=== PATIENT | male | born 1980 | race Caucasian/White ===

== ENCOUNTER 2023-11-03 06:32 | Emergency (ER) | payer OTHER, SELFPAY ==
[2023-11-03 06:37] VITALS: BP 121/77; BMI 25.9
[2023-11-03 07:00] VITALS: BP 133/87
[2023-11-03 07:03] LABS: % Basophils 0.5 % (0-2); % Eosinophils 2.2 % (0-6); % Immature Granulocytes 0.4 % (0-0.5); % Lymphocytes 10.1 % (20.5-51.1); % Monocytes 5.6 % (1.7-9.3); % Neutrophils 81.2 % (42.2-75.2); Absolute Basophils 0.1 10^3/uL (0-0.2); Absolute Eosinophils 0.3 10^3/uL (0-0.7); Absolute Immature Granulocytes 0.1 10^3/uL (0-0.05); Absolute Lymphocytes 1.5 10^3/uL (1.2-3.4); Absolute Monocytes 0.8 10^3/uL (0.1-0.6); Absolute Neutrophils 11.9 10^3/uL (1.4-6.5); Hematocrit 42.6 % (39.0-52.0); Hemoglobin 14.4 g/dL (13.0-18.0); Mean Corp Hgb Conc. 33.8 g/dL (33.0-37.0); Mean Corpuscular Hgb 30.4 pg (27.0-31.0); Mean Corpuscular Volume 90.1 fL (80.0-94.0); Mean Platelet Volume 10.1 fL (7.4-10.4); Nucleated Red Blood Cells % 0 % (-); Platelet Count 393 10^3/uL (130-400); Red Blood Cell Count 4.73 10^6/uL (4.70-6.10); Red Cell Dist. Width 12.8 % (11.5-14.5); White Blood Cell Count 14.7 10^3/uL (4.8-10.8)
[2023-11-03 07:23] LABS: ALT (SGPT) 67 U/L (0-50); AST (SGOT) 71 U/L (17-59); Albumin 4.6 g/dl (3.5-5.0); Alkaline Phosphatase 93 U/L (38-126); Blood Urea Nitrogen 24 mg/dl (9-20); Calcium 9.7 mg/dl (8.4-10.2); Carbon Dioxide 24 mmol/L (22-30); Chloride 105 mmol/L (98-107); Estimated Creatinine Clearance 114 ml/min; Glucose 125 mg/dl (70-99); Potassium 3.8 mmol/L (3.5-5.1); Sodium 138 mmol/L (135-145); Total Bilirubin 0.3 mg/dl (0.2-1.3); Total Protein 7.4 g/dl (6.3-8.2); eGFR > 60.00
--- NOTE | 2023-11-03 07:31 | ED.GENMED ---
History of Present Illness
General
Chief Complaint: Chest Pain
Source: patient
Exam Limitations: none
Time Seen by Provider: 11/03/23 06:59
Nursing documentation reviewed up to this point in time: agreed with
Travel History
Have you had any contact with someone who has COVID-19?: No
Do you have any symptoms of coronavirus? Fever > 100 degrees, chills, cough, shortness of breath, sore throat, loss of taste or smell, muscle aches, or headache?: No
Symptoms:: nausea
History of Present Illness
History of Present Illness:
43-year-old male past medical history of substance abuse currently on methadone presenting to the emergency department today with concerns of left-sided chest pressure with radiation to the upper associate with nausea vomiting diaphoresis occurred
for under an hour prior to arrival EMS was called at his methadone he was given aspirin and nitro now chest pain is resolved. Denies any recent trauma surgery immobilization, clotting history. Patient was never an IV drug user. Denies similar
symptoms in the past no family history of early heart disease.
Review of Systems
Review of Systems
Allergies reviewed?: Yes
All Other Systems: ROS reviewed and negative except as documented in HPI and ROS
Phy Exam
Physical Exam
Physical Exam:
GENERAL: Alert , in no apparent distress
EYE: pupils equal and reactive
NECK: Supple, no significant adenopathy.
ENT: o/p clr, mmm.
CARDIAC: Regular rate and rhythm .
LUNGS: Clear breath sounds bilaterally, no acute respiratory distress, no wheezes/rales/rhonchi
ABDOMEN: Soft, without focal tenderness, no r/g, no cvat
NEUROLOGICAL: Alert and oriented, no focal neuro deficits
SKIN: Warm and dry, skin intact.
MUSCULOSKELETAL: No edema, well perfused.
PSYCH: Normal and appropriate interaction.
Scores
Heart Score for Chest Pain Patients
STEMI patient?: No
History: Slightly or Non-Suspicious
ECG: Normal
Age: </= 45 years
Risk Factors: 1 or 2 Risk Factors
Troponin: </= Normal Limit
Heart Score for Chest Pain Patients: 1
Heart Score Risk: 2.5% MACE over next 6 weeks
Course
Orders/Labs/Results
Orders:
Orders
11/03/23 06:36
Electrocardiogram (*1) Urgent
Reason for Study: Other
Other Reason for Exam: Respiratory Distress
Cardiac Monitoring- Treatment ONCE
EKG- Treatment ONCE
IV Insert/Care/Rem.- Treatment PRN
CR Chest - 2 Views Urgent
Comment:
Reason For Exam: respiratory distress
11/03/23 06:55
Complete Blood Count/With Diff Urgent
Comprehensive Metabolic Panel Urgent
Troponin I Urgent
11/03/23 09:35
EKG [Electrocardiogram (*1)] Urgent
Reason for Study: Chest Pain
EKG- Treatment ONCE
11/03/23 10:31
Troponin I Urgent
Abnormal Lab Results
11/03/23
06:55
WBC 14.7 H 10^3/uL
(4.8-10.8)
Abs Immat Gran (auto) 0.1 H 10^3/uL
(0-0.05)
Absolute Neuts (auto) 11.9 H 10^3/uL
(1.4-6.5)
Absolute Monos (auto) 0.8 H 10^3/uL
(0.1-0.6)
Neutrophils % 81.2 H %
(42.2-75.2)
Lymphocytes % 10.1 L %
(20.5-51.1)
BUN 24 H mg/dl
(9-20)
Glucose 125 H mg/dl
(70-99)
AST 71 H U/L
(17-59)
ALT 67 H U/L
(0-50)
11/03/23 06:55
11/03/23 06:55
Vital Signs
Initial and Last Documented VS:
Initial Vital Signs
Temp Pulse Resp BP Pulse Ox
97.8 F 72 12 121/77 98
11/03/23 06:37 11/03/23 06:37 11/03/23 06:37 11/03/23 06:37 11/03/23 06:37
Last Documented Vital Signs
Temp Pulse Resp BP Pulse Ox
97.8 F 58 11 118/71 98
11/03/23 06:37 11/03/23 09:15 11/03/23 09:15 11/03/23 09:00 11/03/23 08:45
MDM/Problems Addressed
MDM/Problems Addressed:
43-year-old male presenting to the emergency department today with concerns of a left-sided chest discomfort occurring just prior to arrival relieved after receiving aspirin and nitro en route via EMS. Here patient generally well-appearing with
normal vital signs labs showing elevated white count of 14.7 but otherwise no significantly remarkable findings. Plan for additional testing rule out ACS. Patient is low risk for blood clot and is PERC negative. Initial troponin negative chest
x-ray normal. 3-hour trop also negative EKG unchanged. ACS very unlikely at this point. Patient advised for close cardiac follow-up. Low risk heart score. Return precautions given.
*Critical Care Note
Total Time (30-74mins, 75-104mins- exclusive of procedures): Not Applicable
ED Attending Note
-
Portions of this chart may have been created with voice recognition software.� Occasional wrong word or��sound alike� substitutions may have occurred due to the inherent limitations of voice recognition software.
Discharge Plan
Departure
Patient Disposition: Home (Routine Discharge)
Date of Disposition: 11/03/23
Time of Disposition: 11:37
Patient with high blood pressure during this ER visit?: No
Condition: Good
Covid-19: Not Applicable
Discharge Problem:
Chest pain
Instructions: Chest Pain DCA Follow Up
Prescriptions:
No Action
methadone
75 mg PO
Rx Instructions:
pt. reports this is liquid form, usually gets from crisis
Referrals:
UNKNOWN - PT DOES,NOT KNOW [Family Provider] -
Activity Restrictions/Additional Instructions:
You came to the emergency department today with concerns of chest discomfort. Here you had a reassuring evaluation. Please follow-up closely with cardiology in the next week. Return to the emergency department any worsening, new or concerning
symptoms.
Interventions
Interventions:
*Risk Screen - Suicide Last Done: 11/03/23 06:37
*General Assessment Last Done: 11/03/23 06:37
*Neglect/Abuse Screening Last Done: 11/03/23 06:37
ED- Fall Risk Assessment Last Done: 11/03/23 06:37
*ED COVID-19 Vaccine History Last Done: 11/03/23 06:37
ED- Cardiac Assessment Last Done: 11/03/23 06:45
Discharge Date and Time
Print Language: WELSH
[2023-11-03 07:35] LABS: Troponin I < 0.012 ng/ml
[2023-11-03 08:00] VITALS: BP 123/87
[2023-11-03 09:00] VITALS: BP 118/71
[2023-11-03 10:00] VITALS: BP 109/71
[2023-11-03 11:00] VITALS: BP 124/77
[2023-11-03 11:09] LABS: Troponin I < 0.012 ng/ml
== END 2023-11-03 11:50 | disposition home or self-care (01) ==
LOC: EMR 06:32
PROVIDERS: Physician Assistant; EMERGENCY PHYSICIAN Emergency Medicine
DX: R07.89 Other chest pain (principal); R06.03 Acute respiratory distress; R11.2 Nausea with vomiting, unspecified; R61 Generalized hyperhidrosis; D72.829 Elevated white blood cell count, unspecified
CPT/HCPCS: 99285; 71046; 80053; 84484; 85025; 93005